=== PATIENT | male | born 1990 | race Caucasian/White ===

== ENCOUNTER 2021-08-26 17:19 | Emergency (ER) | payer MEDICAID, SELFPAY ==
[2021-08-26 17:45] VITALS: BP 146/85; PULSE 86; RESP 17; TEMP 36.8; O2SAT 100; BMI 33.4
--- NOTE | 2021-08-26 18:09 | MHC.RECOVSUP ---
I called [facility] and they stated that patient does have a bed but due to he statement about how he doing Physical he needed to be clear first.
--- NOTE | 2021-08-26 19:30 | ED_ITS ---
HPI - General Adult General Chief complaint: General Medical Stated complaint: medical clearance Time Seen by Provider: 08/26/21 22:48 Source: patient Mode of arrival: ambulatory Limitations: no limitations History of Present Illness HPI narrative: 31-year-old male presents for medical clearance for [facility] facility. Onset (ago): unknown Severity: mild Associated symptoms: denies other symptoms Treatments prior to arrival: none Related Data Allergies Allergy/AdvReac Type Severity Reaction Status Date / Time No Known Allergies Allergy Verified 08/26/21 19:42 Review of Systems Review of Systems: Constitutional: No Fever, No Chills ENT/Mouth: No sore throat, No Rhinorrhea Eyes: No Eye Pain, No Swelling, No Redness Cardiovascular: No Chest Pain, No SOB Respiratory: No Cough, No Sputum Gastrointestinal: No Nausea, No Vomiting, No Diarrhea, No abdominal Pain Genitourinary: No Dysuria, No Hematuria Musculoskeletal: No joint pain, No Myalgias, No Joint Swelling Skin: No Skin Lesions, No rash Neuro: No Weakness, No Numbness, No Loss of Consciousness, No Dizziness, No Headache Psych: Positive polysubstance abuse, No Anxiety, No Depression, No SI/HI/AH/VH Heme/Lymph: No Bruising, No Bleeding,No Lymphadenopathy Endocrine: No Polyuria, No Polydipsia Yes all other systems are reviewed and are negative [facility] Past Medical History Attestation statement: The following information was validated with the patient. Source: old records reviewed Medical History Seizure Social History Social History Alcohol intake: current Alcohol intake frequency: 3 or more drinks per day Patient Tobacco Use Status: Current everyday Tobacco user Use of substances other than those prescribed or required for medical reasons: Yes Substance Use Type: Heroin and Marijuana Substance Use Frequency: Chronic Longstanding Last Used Substance: Days (ago) Any prior treatment program specific to substance use: Yes Advance Directives: No Advance Directives Information Provided: No Physical Exam ED Vital Signs: Vital Signs - 24 hr 08/26/21 17:45 08/26/21 20:00 08/26/21 22:52 Temperature 98.3 F Pulse Rate 86 77 Respiratory Rate 17 16 Blood Pressure 146/85 H 131/75 114/63 Pulse Oximetry 100 98 BMI result Body Mass Index 33.4 Appearance: Alert. Oriented X3. No acute distress. Eyes: Pupils equal, round and reactive to light. ENT: Pharynx normal. Neck: Normal inspection. Neck supple. CVS: Normal heart rate and rhythm. Pulses normal. Respiratory: No respiratory distress. Breath sounds normal. Abdomen: Soft and nontender. Skin: Skin warm and dry. Normal skin color. Normal skin turgor. Extremities: No lower extremity edema. Gait well-balanced well coordinated. Neuro: No motor deficit. No sensory deficit. Cranial nerves 2-12 intact. Course Course Course Narrative: 31-year-old male presents for medical clearance for acceptance to [facility]. States that he has polysubstance abuse. Feels that he is withdrawing at this time. I did discuss his case with wrestling coach, plan is for labs, urinalysis, and then discharged to [facility]. Midnight patient medically cleared. Plan for care is for discharge to detox facility in the morning. Physician observation at this time. Medical Decision Making Differential Diagnosis Differential Diagnosis: Medical clearance Medical Records Medical records reviewed: Yes I reviewed the patient's medical records. Lab Data Lab results reviewed: Yes I reviewed the patient's lab results. Result diagrams: 08/26/21 20:37 08/26/21 20:37 Labs: Lab Results 08/26/21 08/26/21 08/26/21 Range/Units 20:37 20:37 20:37 WBC 3.7 L (4.8-10.8) X10*3/uL RBC 4.53 L (4.60-5.80) X10*6/uL Hgb 13.4 L (14.0-18.0) g/dl Hct 38.8 L (42.0-52.0) % MCV 85.7 (80.0-98.0) fL MCH 29.6 (27.0-33.0) pg MCHC 34.5 (31.0-36.0) g/dl RDW 12.9 (11.0-16.0) % Plt Count 149 L (160-400) X10*3/uL MPV 9.9 (9.4-12.4) fL Immature Gran % (Auto) 0.3 (0.0-0.4) % Neut % (Auto) 65.5 (45-73) % Lymph % (Auto) 19.4 L (20-40) % [place] % (Auto) 14.5 H (2-11) % Eos % (Auto) 0.3 (0-4) % Baso % (Auto) 0.0 (0-2) % Lymph # (Auto) 0.7 L (1.2-4.9) X10*3/uL [place] # (Auto) 0.5 (0.1-1.2) X10*3/uL Eos # (Auto) 0.0 (0.0-0.4) X10*3/uL Baso # (Auto) 0.0 (0.0-0.2) X10*3/uL Abs Immat Gran (auto) 0.01 (0.00-0.03) X10*3/uL Absolute Neuts (auto) 2.4 (2.0-8.3) x10*3/uL Absolute Nucleated RBC 0.000 (0.0-0.012) X10*3/uL Nucleated RBC % (auto) 0.0 (0.0-0.2) /100WBC Sodium 139 (135-145) mmol/L Potassium 3.9 (3.3-5.1) mmol/L Chloride 104 (96-108) mmol/L Carbon Dioxide 26 (22-29) mmol/L Anion Gap 13 (12-20) BUN 10 (9-16) mg/dL Creatinine 0.85 (0.5-1.4) mg/dL Estim Creat Clear Calc 141.5 Estimated GFR > 60 Random Glucose 121 H (60-115) mg/dL Calcium 9.5 (8.4-10.2) mg/dL Total Bilirubin 0.6 (0.0-1.0) mg/dL Direct Bilirubin 0.3 (0.0-0.5) mg/dL AST 36 (5-37) U/L ALT 32 (0-40) U/L Alkaline Phosphatase 85 (39-117) U/L Total Protein 7.7 (6.5-8.0) g/dL Albumin 4.3 (3.5-5.0) g/dL Lipase 22 (8-78) U/L Urine Color Urine Appearance Urine pH (5.0-8.0) Ur Specific [place] (1.005-1.025) Urine Protein (NEG-TRACE) MG/DL Urine Glucose (UA) (NEG) MG/DL Urine Ketones (NEG) MG/DL Urine Blood (NEG) Urine Nitrite (NEG) Ur Leukocyte Esterase (NEG) Urine Opiates Screen (Not Detect) Urine Fentanyl Screen (Not Detect) Ur Barbiturates Screen (Not Detect) Ur Phencyclidine Scrn (Not Detect) Ur Amphetamines Screen (Not Detect) U Benzodiazepines Scrn (Not Detect) Urine Cocaine Screen (Not Detect) U Marijuana (THC) Screen (Not Detect) Ethyl Alcohol < 10 mg/dL 08/26/21 08/26/21 Range/Units 22:04 22:04 WBC (4.8-10.8) X10*3/uL RBC (4.60-5.80) X10*6/uL Hgb (14.0-18.0) g/dl Hct (42.0-52.0) % MCV (80.0-98.0) fL MCH (27.0-33.0) pg MCHC (31.0-36.0) g/dl RDW (11.0-16.0) % Plt Count (160-400) X10*3/uL MPV (9.4-12.4) fL Immature Gran % (Auto) (0.0-0.4) % Neut % (Auto) (45-73) % Lymph % (Auto) (20-40) % [place] % (Auto) (2-11) % Eos % (Auto) (0-4) % Baso % (Auto) (0-2) % Lymph # (Auto) (1.2-4.9) X10*3/uL [place] # (Auto) (0.1-1.2) X10*3/uL Eos # (Auto) (0.0-0.4) X10*3/uL Baso # (Auto) (0.0-0.2) X10*3/uL Abs Immat Gran (auto) (0.00-0.03) X10*3/uL Absolute Neuts (auto) (2.0-8.3) x10*3/uL Absolute Nucleated RBC (0.0-0.012) X10*3/uL Nucleated RBC % (auto) (0.0-0.2) /100WBC Sodium (135-145) mmol/L Potassium (3.3-5.1) mmol/L Chloride (96-108) mmol/L Carbon Dioxide (22-29) mmol/L Anion Gap (12-20) BUN (9-16) mg/dL Creatinine (0.5-1.4) mg/dL Estim Creat Clear Calc Estimated GFR Random Glucose (60-115) mg/dL Calcium (8.4-10.2) mg/dL Total Bilirubin (0.0-1.0) mg/dL Direct Bilirubin (0.0-0.5) mg/dL AST (5-37) U/L ALT (0-40) U/L Alkaline Phosphatase (39-117) U/L Total Protein (6.5-8.0) g/dL Albumin (3.5-5.0) g/dL Lipase (8-78) U/L Urine Color YELLOW Urine Appearance CLEAR Urine pH 6.5 (5.0-8.0) Ur Specific [place] 1.015 (1.005-1.025) Urine Protein NEG (NEG-TRACE) MG/DL Urine Glucose (UA) NEG (NEG) MG/DL Urine Ketones NEG (NEG) MG/DL Urine Blood NEG (NEG) Urine Nitrite NEG (NEG) Ur Leukocyte Esterase NEG (NEG) Urine Opiates Screen Not Detected (Not Detect) Urine Fentanyl Screen POSITIVE H (Not Detect) Ur Barbiturates Screen Not Detected (Not Detect) Ur Phencyclidine Scrn Not Detected (Not Detect) Ur Amphetamines Screen Not Detected (Not Detect) U Benzodiazepines Scrn POSITIVE H (Not Detect) Urine Cocaine Screen Not Detected (Not Detect) U Marijuana (THC) Screen POSITIVE H (Not Detect) Ethyl Alcohol mg/dL Discharge Plan Discharge Clinical Impression: Polysubstance abuse Patient Disposition: Home, Self-Care Instructions: Polysubstance Abuse (ED) Additional Instructions: Please follow-up with detox. Thank you for choosing this emergency department for evaluation. Please follow-up with primary care physician as needed. Return to the emergency department for any new, concerning, or worsening symptoms.
[2021-08-26 20:00] VITALS: BP 131/75
--- NOTE | 2021-08-26 20:02 | MHC.RECOVSUP ---
Spoke [facility] and they stated that patient still has the bed but would have to wait till the Morning.
[2021-08-26] MEDS: cloNIDine HCL 0.1 MG TABLET PO (20:04)
[2021-08-26] MEDS: Ondansetron ODT 4 MG TAB.RAPDIS TRANSLINGU (20:05)
[2021-08-26] MEDS: diphenhydrAMINE HCL 25 MG TABLET PO (20:05)
[2021-08-26 20:43] LABS: MANUAL DIFF FLAG NO
[2021-08-26 20:46] LABS: Eosinophils Percent Auto 0.3 % (0-4); Hematocrit 38.8 % (42.0-52.0); Hemoglobin 13.4 g/dl (14.0-18.0); Imm Gran Abs Auto 0.01 X10*3/uL (0.00-0.03); Imm Gran Pct Auto 0.3 % (0.0-0.4); Lymphocytes Absolute Auto 0.7 X10*3/uL (1.2-4.9); Lymphocytes Percent Auto 19.4 % (20-40); Mean Corpuscular HGB Conc 34.5 g/dl (31.0-36.0); Mean Corpuscular Hemoglobin 29.6 pg (27.0-33.0); Mean Corpuscular Volume 85.7 fL (80.0-98.0); Mean Platelet Volume 9.9 fL (9.4-12.4); Monocytes Absolute Auto 0.5 X10*3/uL (0.1-1.2); Monocytes Percent Auto 14.5 % (2-11); Neutrophils Absolute Auto 2.4 x10*3/uL (2.0-8.3); Neutrophils Percent Auto 65.5 % (45-73); Platelet Count 149 X10*3/uL (160-400); Red Blood Count 4.53 X10*6/uL (4.60-5.80); Red Cell Distribution Width 12.9 % (11.0-16.0); White Blood Count 3.7 X10*3/uL (4.8-10.8)
[2021-08-26 20:57] LABS: Ethanol < 10 mg/dL
[2021-08-26 21:01] LABS: Alanine Aminotransferase 32 U/L (0-40); Albumin Level 4.3 g/dL (3.5-5.0); Alkaline Phosphatase 85 U/L (39-117); Anion Gap 13 (12-20); Aspartate Amino Transferase 36 U/L (5-37); Bilirubin Direct 0.3 mg/dL (0.0-0.5); Bilirubin Total 0.6 mg/dL (0.0-1.0); Blood Urea Nitrogen 10 mg/dL (9-16); Calcium 9.5 mg/dL (8.4-10.2); Carbon Dioxide 26 mmol/L (22-29); Chloride 104 mmol/L (96-108); Creatinine Clr Calc Pharmacy 141.5; Estimated Glomerular Filt Rate > 60; Glucose Random 121 mg/dL (60-115); Lipase 22 U/L (8-78); Potassium 3.9 mmol/L (3.3-5.1); Sodium 139 mmol/L (135-145); Total Protein 7.7 g/dL (6.5-8.0)
[2021-08-26 22:13] LABS: Appearance Urine CLEAR; Color Urine YELLOW; Glucose Urine UA NEG (NEG); Leukocyte Esterase Urine NEG (NEG); Nitrite Urine NEG (NEG); PH 6.5 (5.0-8.0); Specific Gravity - Urine 1.015 (1.005-1.025); Urine Blood NEG (NEG); Urine Ketones NEG (NEG); Urine Protein NEG (NEG-TRACE)
[2021-08-26 22:25] LABS: Amphetamine Screen Urine Not Detected (Not Detect); Barbiturates, Urine Not Detected (Not Detect); Benzodiazepines Screen Urine POSITIVE (Not Detect); Cannabinoid Screen Urine POSITIVE (Not Detect); Cocaine Screen Urine Not Detected (Not Detect); Fentanyl, urine POSITIVE (Not Detect); Opiate Screen Urine Not Detected (Not Detect); Phencyclidine Screen Urine Not Detected (Not Detect)
[2021-08-26 22:52] VITALS: BP 114/63; PULSE 77; RESP 16; O2SAT 98
[2021-08-26] MEDS: LORazepam 1 MG TABLET 2 MG PO (22:55)
--- NOTE | 2021-08-27 00:11 | PC.NURSE ---
Patient is here seeking detox. Patient has a bed at [facility] once he is medically cleared. However, according to care team patient will not have transportation until the morning. Patient also reports that he takes methodone and goes to the clinic on [facility].
[2021-08-27 00:19] VITALS: BP 111/70; PULSE 74; RESP 14; TEMP 36.6; O2SAT 97
[2021-08-27 03:08] LABS: COVID-19 Test Negative (Negative)
--- NOTE | 2021-08-27 06:05 | PC.NURSE ---
Patient got transferred from ED, independent gait, behavior non concerning at this time, disposition detox in the morning, patietn ppears sleeping, no distress observed/reported, will continue to monitor.
--- NOTE | 2021-08-27 07:09 | PC.NURSE ---
patient appears to remain asleep at present respirations are even and unlabored patient appears in no distress
[2021-08-27 07:56] VITALS: BP 125/68; PULSE 88; RESP 14; TEMP 36.7; O2SAT 100
[2021-08-27] MEDS: LORazepam 1 MG TABLET PO (08:13)
[2021-08-27] MEDS: Ondansetron ODT 4 MG TAB.RAPDIS TRANSLINGU (08:14)
--- NOTE | 2021-08-27 09:06 | MHC.RECOVSUP ---
Addendum entered by Quincy Camargo [facility] 08/27/21 10:35: Patient accepted to [facility]. Admission time 1245. Patient to be transported via [facility]. RN aware. Original Note: Recovery Support note: Patient is a 31 year old Vincentian speaking male who presented to [facility] on 08/26 for medical clearance for ATS. This service writer met with patient on 08/27 to confirm he is still interested in treatment. Patient reports interest and also is reporting withdrawal symptoms [facility] reports patient was seen on 08/22 and dosed with 150mg and given 5 take home bottles. Patient reports he last took a bottle four days ago. Plan for patient to receive 30mg while in the ED to address withdrawal symptoms. Patient information currently being reviewed by Sami. This service writer awaits follow up. Discussed case with ED provider and patient's RN.
[2021-08-27] MEDS: methADONE HCl 20 MG/2 ML ORAL.CONC 30 MG PO (09:29)
== END 2021-08-27 12:13 | disposition other institution (70) ==
PROVIDERS: Nurse Practitioner Family; Emergency Provider Emergency Medicine Emergency Medical Services; PCP Family Medicine
DX: F11.10 Opioid abuse, uncomplicated (principal); F12.10 Cannabis abuse, uncomplicated; Z71.51 Drug abuse counseling and surveillance of drug abuser; F17.200 Nicotine dependence, unspecified, uncomplicated; Z71.6 Tobacco abuse counseling; Z79.899 Other long term (current) drug therapy; Z20.822 Contact with and (suspected) exposure to COVID-19
CPT/HCPCS: 36415; 80048; 80076; 80307; 81003; 82077; 83690; 85025; 87635; 99284; Q0163

== ENCOUNTER 2022-10-31 22:54 | Emergency (ER) | payer OTHER, MEDICAID, SELFPAY ==
[2022-10-31 23:19] VITALS: BP 135/94; PULSE 70; RESP 16; TEMP 36.4; O2SAT 96; BMI 44.3
--- NOTE | 2022-11-01 00:09 | PC.NURSE ---
while pt was getting his labs drawn, he reports that he attempted to kill himself by over dosing on heroin this rn re-evaluated the pt and pt still reports feeling suicidal, lots of stress in life
--- NOTE | 2022-11-01 00:43 | ED_ITS ---
HPI - General Adult General Chief complaint: Skin/Abscess/Foreign Body Stated complaint: right foot ulcer Time Seen by Provider: 11/01/22 00:30 Source: patient, family, RN notes reviewed and old records reviewed Mode of arrival: ambulatory Limitations: no limitations History of Present Illness HPI narrative: 32-year-old male with past medical history significant for anxiety, depression, hepatitis-C, IV drug abuse presents for evaluation of ?I am going through a rough time. ? Patient reports increasing depression and reports he attempted to end his life this morning by overdosing on heroin The patient denies any other coingestion Patient reports that he uses about 1 and 1/2 bundles of heroin daily Reports that he last used around 8:00 p.m. last night Patient also admits using methadone which he took yesterday morning Patient admits to having a wound on the top of his right foot for the last month He states this was from injecting heroin into the area He reports that it was last to treating a few days ago Denies any fevers or chills Related Data Home Medications Medication Instructions Recorded Confirmed methadone 150 mg PO DAILY 08/26/21 11/01/22 alprazolam 2 mg tablet 2 mg PO TID PRN Anxiety 11/01/22 11/01/22 clonidine HCl 0.2 mg tablet 0.2 mg PO BID 11/01/22 11/01/22 dextroamphetamine-amphetamine ER 20 mg PO BID@0900,1700 11/01/22 11/01/22 20 mg 24hr capsule,extend release (Adderall XR) gabapentin 800 mg tablet 800 mg PO TID 11/01/22 11/01/22 ibuprofen 800 mg tablet 800 mg PO TID 11/01/22 11/01/22 methadone 10 mg/mL oral 50 mg PO QPM 11/01/22 11/01/22 concentrate (Methadone Intensol) Allergies Allergy/AdvReac Type Severity Reaction Status Date / Time No Known Allergies Allergy Verified 10/31/22 23:25 Review of Systems Constitutional: Constitutional: Denies body ache(s), Denies chills, Denies fatigue, Denies fever(s) and Denies headache(s) ENT: Denies headache(s) Cardiovascular: Cardiovascular: Denies chest pain and Denies dyspnea Respiratory: Respiratory: Denies cough and Denies dyspnea Gastrointestinal: Gastrointestinal: Denies abdominal pain, Denies constipation and Denies vomiting Genitourinary: Genitourinary: Denies difficulty urinating and Denies dysuria Integumentary/Breasts: Skin/Breast: Reports non-healing lesions and Reports wounds Neurologic: Denies headache(s) and Denies focal weakness Endocrine: Endocrine: Denies fatigue PMFSH Past Medical History Medical History Seizure Social History Social History Alcohol intake: current Alcohol intake frequency: 3 or more drinks per day Patient Tobacco Use Status: Current everyday Tobacco user Substance Use Type: Heroin and Marijuana Advance Directives: No Advance Directives Information Provided: No Healthcare Proxy: No Guardian: No Physical Exam ED Vital Signs: Vital Signs - 24 hr 10/31/22 23:19 11/01/22 08:53 Temperature 97.5 F 98.3 F Pulse Rate 70 60 Respiratory Rate 16 16 Blood Pressure 135/94 H 105/40 L Pulse Oximetry 96 97 Oxygen Delivery Method Room Air Room Air BMI result Body Mass Index 44.3 Const General: healthy appearing, comfortable, no acute distress, alert and awake Nutritional Appearance: well nourished Orientation/consciousness: patient oriented x3 HENMT Head: Yes normocephalic and Yes atraumatic Eyes Eyelids: Yes eyelids normal Conjunctivae: conjunctivae normal Sclerae: sclerae normal Corneas: corneas normal Pupils: Equal, round and reactive pupils present EOM: EOMs intact bilaterally Neck Neck: Yes full ROM Resp Effort & Inspection: normal respiratory effort, no audible wheezes and not labored Cardio Rate: regular rate Rhythm: regular rhythm Skin Other: Patient has about a 3 cm area of induration, round in shape. There is a central, shallow ulceration. There is surrounding granulomatous tissue but no beefy red erythema, no drainage, no fluctuance. No streaking up the right lower leg, no calf tenderness Neuro General: patient oriented x3 Cranial nerves: Yes Equal, round and reactive pupils present and Yes Bilaterally intact EOM present Cognition (Neuro): normal cognition Extrem Other: Moving all extremities well without any obvious deformities Course Reevaluation(s) Reevaluation #1: Patient medically cleared for care to evaluation. Signed out to overnight staff Time: 02:01 Reevaluation #2: physician observation: uneventful night cooperative all night, going to bed search. Will need time to see if patient improves or needs a bed. Time: 08:05 Reevaluation #3: patient accepted to [facility] Time: 09:51 Medications Administered Generic Name Dose Route Start Last Admin Trade Name Sasha PRN Reason Stop Dose Admin Cephalexin HCl 500 mg 11/01/22 00:45 11/01/22 06:01 Cephalexin 500 Mg Capsule PO 11/07/22 18:46 500 mg Q6H DEVI Administration Discontinued Medications Generic Name Dose Route Start Last Admin Trade Name Freq PRN Reason Stop Dose Admin Methadone HCl 150 mg 11/01/22 09:00 11/01/22 08:49 Methadone Hcl 20 Mg/2 Ml Oral.Conc PO 11/01/22 09:01 150 mg ONCE@0900 ONE Administration Medical Decision Making Medical Decision Making [facility] Narrative: He will check a drug screen, alcohol level and Tylenol and salicylate level for evidence of other coingestion. The patient appears quite well with stable vital signs. The patient's wound does not appear acutely infected reports that it was draining as recently as 2 days ago. Will give him a week of cephalexin. The patient is wishing to speak to the care team for his depression and suicidality. Once medically cleared he referred to the care team Differential Diagnosis IV drug abuse Depression Suicidal ideation Cellulitis Chronic wound Lab Data 11/01/22 00:45 11/01/22 00:45 Labs: Lab Results 11/01/22 11/01/22 11/01/22 Range/Units 00:45 00:48 01:33 WBC 8.5 (4.8-10.8) X10*3/uL RBC 4.51 L (4.60-5.80) X10*6/uL Hgb 13.5 L (14.0-18.0) g/dl Hct 41.1 L (42.0-52.0) % MCV 91.1 (80.0-98.0) fL MCH 29.9 (27.0-33.0) pg MCHC 32.8 (31.0-36.0) g/dl RDW 13.2 (11.0-16.0) % Plt Count 93 L D (160-400) X10*3/uL MPV 10.6 (9.4-12.4) fL Immature Gran % (Auto) 0.2 (0.0-0.4) % Neut % (Auto) 58.1 (45-73) % Lymph % (Auto) 30.6 (20-40) % [place] % (Auto) 10.7 (2-11) % Eos % (Auto) 0.2 (0-4) % Baso % (Auto) 0.2 (0-2) % Lymph # (Auto) 2.6 (1.2-4.9) X10*3/uL [place] # (Auto) 0.9 (0.1-1.2) X10*3/uL Eos # (Auto) 0.0 (0.0-0.4) X10*3/uL Baso # (Auto) 0.0 (0.0-0.2) X10*3/uL Abs Immat Gran (auto) 0.02 (0.00-0.03) X10*3/uL Absolute Neuts (auto) 4.9 (2.0-8.3) x10*3/uL Absolute Nucleated RBC 0.000 (0.0-0.012) X10*3/uL Nucleated RBC % (auto) 0.0 (0.0-0.2) /100WBC Sodium Cancelled Potassium Cancelled Chloride Cancelled Carbon Dioxide Cancelled Anion Gap Cancelled BUN Cancelled Creatinine Cancelled Estim Creat Clear Calc Cancelled Estimated GFR Cancelled Random Glucose Cancelled Calcium Cancelled Total Bilirubin Cancelled AST Cancelled ALT Cancelled Alkaline Phosphatase Cancelled Total Protein Cancelled Albumin Cancelled Salicylates (15-30) mg/dL Urine Opiates Screen (Not Detect) Urine Fentanyl Screen (Not Detect) Acetaminophen (<30) mcg/mL Ur Barbiturates Screen (Not Detect) Ur Phencyclidine Scrn (Not Detect) Ur Amphetamines Screen (Not Detect) U Benzodiazepines Scrn (Not Detect) Urine Cocaine Screen (Not Detect) U Marijuana (THC) Screen (Not Detect) Ethyl Alcohol mg/dL COVID-19 ([facility]) Negative (Negative) COVID-19 Clin Com See Note 11/01/22 11/01/22 Range/Units 01:33 01:39 WBC (4.8-10.8) X10*3/uL RBC (4.60-5.80) X10*6/uL Hgb (14.0-18.0) g/dl Hct (42.0-52.0) % MCV (80.0-98.0) fL MCH (27.0-33.0) pg MCHC (31.0-36.0) g/dl RDW (11.0-16.0) % Plt Count (160-400) X10*3/uL MPV (9.4-12.4) fL Immature Gran % (Auto) (0.0-0.4) % Neut % (Auto) (45-73) % Lymph % (Auto) (20-40) % [place] % (Auto) (2-11) % Eos % (Auto) (0-4) % Baso % (Auto) (0-2) % Lymph # (Auto) (1.2-4.9) X10*3/uL [place] # (Auto) (0.1-1.2) X10*3/uL Eos # (Auto) (0.0-0.4) X10*3/uL Baso # (Auto) (0.0-0.2) X10*3/uL Abs Immat Gran (auto) (0.00-0.03) X10*3/uL Absolute Neuts (auto) (2.0-8.3) x10*3/uL Absolute Nucleated RBC (0.0-0.012) X10*3/uL Nucleated RBC % (auto) (0.0-0.2) /100WBC Sodium 137 Potassium 4.0 Chloride 101 Carbon Dioxide 26 Anion Gap 14 BUN 21 H Creatinine 1.38 Estim Creat Clear Calc 103.3 Estimated GFR 59 Random Glucose 127 H Calcium 9.1 Total Bilirubin 1.2 H AST 53 H ALT 66 H Alkaline Phosphatase 94 Total Protein 7.6 Albumin 4.0 Salicylates < 5.0 L (15-30) mg/dL Urine Opiates Screen POSITIVE H (Not Detect) Urine Fentanyl Screen POSITIVE H (Not Detect) Acetaminophen < 17 (<30) mcg/mL Ur Barbiturates Screen Not Detected (Not Detect) Ur Phencyclidine Scrn Not Detected (Not Detect) Ur Amphetamines Screen POSITIVE H (Not Detect) U Benzodiazepines Scrn Not Detected (Not Detect) Urine Cocaine Screen POSITIVE H (Not Detect) U Marijuana (THC) Screen Not Detected (Not Detect) Ethyl Alcohol < 10 mg/dL COVID-19 ([facility]) (Negative) COVID-19 Clin Com Discharge Plan Discharge Clinical Impression: Open wound of right foot, Polysubstance abuse, Suicidal ideation Patient Disposition: [facility]fer [facility] Transfer Details: admission Prescriptions: No Action methadone 150 mg PO DAILY dextroamphetamine-amphetamine [Adderall XR] 20 mg capsule,extended release 24hr 20 mg PO BID@0900,1700 ibuprofen 800 mg tablet 800 mg PO TID clonidine HCl 0.2 mg tablet 0.2 mg PO BID gabapentin 800 mg tablet 800 mg PO TID alprazolam 2 mg tablet 2 mg PO TID PRN (Reason: Anxiety) methadone [Methadone Intensol] 10 mg/mL Concentrate 50 mg PO QPM
[2022-11-01 00:50] LABS: Basophils Percent Auto 0.2 % (0-2); Eosinophils Percent Auto 0.2 % (0-4); Hematocrit 41.1 % (42.0-52.0); Hemoglobin 13.5 g/dl (14.0-18.0); Imm Gran Abs Auto 0.02 X10*3/uL (0.00-0.03); Imm Gran Pct Auto 0.2 % (0.0-0.4); Lymphocytes Absolute Auto 2.6 X10*3/uL (1.2-4.9); Lymphocytes Percent Auto 30.6 % (20-40); Mean Corpuscular HGB Conc 32.8 g/dl (31.0-36.0); Mean Corpuscular Hemoglobin 29.9 pg (27.0-33.0); Mean Corpuscular Volume 91.1 fL (80.0-98.0); Mean Platelet Volume 10.6 fL (9.4-12.4); Monocytes Absolute Auto 0.9 X10*3/uL (0.1-1.2); Monocytes Percent Auto 10.7 % (2-11); Neutrophils Absolute Auto 4.9 x10*3/uL (2.0-8.3); Neutrophils Percent Auto 58.1 % (45-73); PLT CLUMP 1; Red Blood Count 4.51 X10*6/uL (4.60-5.80); Red Cell Distribution Width 13.2 % (11.0-16.0); SCAN SMEAR FLAG 1
[2022-11-01 00:51] LABS: MANUAL DIFF FLAG NO; White Blood Count 8.5 X10*3/uL (4.8-10.8)
[2022-11-01] MEDS: cephALEXin 500 MG CAPSULE PO ×2 (01:07→06:01)
[2022-11-01 01:09] LABS: COVID-19 Test Negative (Negative); IDNOW Serial# BCCEAD1C
[2022-11-01 01:11] LABS: Platelet Count 93 X10*3/uL (160-400)
--- NOTE | 2022-11-01 01:11 | PC.NURSE ---
Pt ca&ox3, no signs of distress. Pt medicated per mar. Will continue to monitor. residential air sealing technician in with pt.
[2022-11-01 01:57] LABS: Amphetamine Screen Urine POSITIVE (Not Detect); Barbiturates, Urine Not Detected (Not Detect); Benzodiazepines Screen Urine Not Detected (Not Detect); Cannabinoid Screen Urine Not Detected (Not Detect); Cocaine Screen Urine POSITIVE (Not Detect); Fentanyl, urine POSITIVE (Not Detect); Opiate Screen Urine POSITIVE (Not Detect); Phencyclidine Screen Urine Not Detected (Not Detect)
[2022-11-01 02:00] LABS: Alanine Aminotransferase 66 U/L (0-40); Alkaline Phosphatase 94 U/L (39-117); Anion Gap 14 (12-20); Aspartate Amino Transferase 53 U/L (5-37); Bilirubin Total 1.2 mg/dL (0.0-1.0); Blood Urea Nitrogen 21 mg/dL (9-16); Calcium 9.1 mg/dL (8.4-10.2); Carbon Dioxide 26 mmol/L (22-29); Chloride 101 mmol/L (96-108); Creatinine Clr Calc Pharmacy 103.3; Estimated Glomerular Filt Rate 59; Ethanol < 10 mg/dL; Glucose Random 127 mg/dL (60-115); Salicylate < 5.0 mg/dL (15-30); Sodium 137 mmol/L (135-145); Total Protein 7.6 g/dL (6.5-8.0)
[2022-11-01 02:33] LABS: Acetaminophen LAB < 17 mcg/mL (<30)
--- NOTE | 2022-11-01 06:03 | PC.NURSE ---
Patient slept through the night, no distress observed/reported, behavior non concerning, disposition per care team is section 12 inpatient bed search, med rec completed/pending provider's approval, methadone verification attempted by calling [phone] but was told to call at [phone] due to staffing challenges at [facility] methadone clinic, VSS, Patient is keflex 500 QID for wound on right lateral foot from possible IV use, will continue to monitor.
--- NOTE | 2022-11-01 08:22 | HE.PHANOTE ---
Methadone verification form received by pharmacy. RN confirmed dose at 200 mg total, 150 mg in the morning and 50 mg later in the day. last dose 10/31/22
[2022-11-01] MEDS: methADONE HCl 20 MG/2 ML ORAL.CONC 150 MG PO (08:49)
[2022-11-01 08:53] VITALS: BP 105/40; PULSE 60; RESP 16; TEMP 36.8; O2SAT 97
--- NOTE | 2022-11-01 10:16 | MHC.CARE ---
RAD Team conduced Dual Diagnosis Bed Search, Placement was found @ [facility] Accepting Dr Bing Gill, ETA [facility]UL[facility]ET. Pod made aware, Transport being Set up. [address] [facility] [id number]
== END 2022-11-01 11:13 ==
PROVIDERS: Physician Assistant; Emergency Provider Emergency Medicine; PCP Family Medicine
DX: S91.301A Unspecified open wound, right foot, initial encounter (principal); X58.XXXA Exposure to other specified factors, initial encounter; F19.10 Other psychoactive substance abuse, uncomplicated; R45.851 Suicidal ideations; Z20.822 Contact with and (suspected) exposure to COVID-19; F11.20 Opioid dependence, uncomplicated; F17.200 Nicotine dependence, unspecified, uncomplicated; F32.A Depression, unspecified; Y93.9 Activity, unspecified; Y92.9 Unspecified place or not applicable; Y99.9 Unspecified external cause status; Z79.899 Other long term (current) drug therapy
CPT/HCPCS: 36415; 80053; 80143; 80179; 80307; 85025; 87635; 99285; S9485